=== PATIENT | male | born 1960 | race Caucasian/White ===

== ENCOUNTER 2017-03-25 12:51 | Emergency (ER) | payer OTHER ==
[~2017-03-25] VITALS: Ht 177.8 cm; Wt 69.8 kg
--- NOTE | ~2017-03-25 | CR108 ---
[facility] A Service of [facility] & [facility] RADIOLOGY TEXT RESULTS PATIENT: FUNMI BOUCHER LOCATION: CFTX : 60 UNIT #: [id number] AGE: [address]: Sara Porras APRN SEX: M ORDER DR: [id number] [facility] [address] [place], [place] [address] [id number] E MR#: [id number] Acc #: [id number] NAME: FUNMI BOUCHER : 1960 SEX: M STUDY DATE/TIME: 03/25/2017 14:11 UNIT: [facility] ROOM: STUDY DESCRIPTION: CR Finger 2 View 2nd Lt Attending Physician: Clarence HernandesRDavian Referring Physician: Dave Munoz M.D. Ordering Physician: Andrew Wood M.D. Primary Care Physician: Ernie AyalaPJanyRDavian MEDICAL IMAGING REPORT This report is preliminary unless electronic signature is present EXAM Left second finger, 3 views. COMPARISON None. INDICATIONS 56-year-old male with laceration and puncture wound to the left second finger after cutting himself with a knife today. Evaluate for foreign body. FINDINGS Bones are anatomically aligned. There is no evidence of acute fracture. No radiopaque foreign body. IMPRESSION No evidence of acute fracture, dislocation or radiopaque foreign body in the visualized hand. Dictated by... Anderson Leblanc M.D. THIS IS AN ELECTRONICALLY VERIFIED REPORT Anderson Leblanc M.D. at 03/30/2017 7:45 AM DAVID/gatito TD: 03/25/2017 17:55 JOB #: [id number] MEDICAL IMAGING REPORT Page 1 of 1 COPY
[~2017-03-25 12:51] MED LIST: ACETAMINOPHEN650 M3 PO; AMITRIPTYLINE100 MG PO; AMITRYPTYLINE PO; ATENOLOL PO; AUGMENTIN1 TAB.SR1 PO; CATAPRES0.1 MG PO; COZAAR100 MG PO; DIAZEPAM PO; HYDROCODON-ACE1 EAC5 PO; KCL PO; KEFLEX PO; LISINOPRIL PO; LOPID600 MG PO; NORCO 10/325 TA1 TAB PO; PERIDEX480 ML MT; PHENERGAN25 MG PO; PRILOSEC PO; PRINIVIL40 MG PO; ROBAXIN500 MG PO; SYNTHROID0.15 MG; TENORMIN50 MG PO; VITAMIN D1000 UNI1 PO
== END 2017-03-25 15:43 | disposition home or self-care (01) ==
LOC: CED 12:51 → CFTX 12:51
DX: S61.211A Laceration without foreign body of left index finger without damage to nail, initial encounter (principal); I10 Essential (primary) hypertension; F32.9 Major depressive disorder, single episode, unspecified; Z88.8 Allergy status to other drugs, medicaments and biological substances; Z79.899 Other long term (current) drug therapy; W26.0XXA Contact with knife, initial encounter; Y92.009 Unspecified place in unspecified non-institutional (private) residence as the place of occurrence of the external cause; Z23 Encounter for immunization
CPT/HCPCS: 12001; 73140; 90471; 90715; 99283